=== PATIENT | female | born 1935 | race Caucasian/White ===

== ENCOUNTER 2016-12-14 16:50 | Inpatient (IN) | payer OTHER ==
[~2016-12-14] VITALS: Ht 162.6 cm; Wt 74.0 kg
--- NOTE | 2016-12-14 17:01 | NUR ---
DR NGUYEN AT BEDSIDE FOR MSE
--- NOTE | 2016-12-14 17:01 | NUR ---
EMT AT BEDSIDE FOR EKG
[2016-12-14] MEDS ORDERED: LOVASTATIN40 MG PO (17:11)
[2016-12-14] MEDS ORDERED: AMARYL4 MG PO (17:11)
[2016-12-14] MEDS ORDERED: ATENOLOL25 MG PO (17:12)
[2016-12-14] MEDS ORDERED: COUMADIN4 MG PO (17:12)
[2016-12-14] MEDS ORDERED: METFORMIN HCL1000 MG PO (17:12)
[2016-12-14] MEDS ORDERED: DILTIAZEM HCL120 M2 PO (17:12)
[2016-12-14] MEDS ORDERED: LOSARTAN POTASS50 M1 PO (17:13)
[2016-12-14] MEDS ORDERED: HYDROCHLOROTH12.5 M2 PO (17:13)
--- NOTE | 2016-12-14 17:13 | NUR ---
RADIOLOGY AT BEDSIDE FOR PCXR
--- NOTE | 2016-12-14 17:27 | NUR ---
MALT HOUSE LOADER AT BEDSIDE FOR BLOOD DRAW
--- NOTE | 2016-12-14 17:30 | NUR ---
PT DAUGHTER GIVEN VERBAL CONSENT FOR STRAIGHT CATH TO OBTAIN URINE SAMPLE
--- NOTE | 2016-12-14 17:48 | NUR ---
PT TAKEN FOR CT SCANS BY CORRY
[2016-12-14 18:01] LABS: CARBON DIOXIDE 27.6 mmol/L (21-32); CHLORIDE SERUM 105 mmol/L (98-107); GLUCOSE SERUM 136 mg/dL (74-106); POTASSIUM SERUM 3.4 mmol/L (3.5-5.1); SODIUM SERUM 142 mmol/L (136-145)
[2016-12-14 18:07] LABS: ALKALINE PHOSPHATASE 93 U/L (46-116); ALT/SGPT 126 U/L (14-59); AST/SGOT 114 U/L (15-37); BILIRUBIN TOTAL 1.22 mg/dL (0.20-1.00); HDL CHOLESTEROL 39 mg/dL (40-60); MAGNESIUM 1.5 mg/dL (1.8-2.4); PHOSPHOROUS 3.7 mg/dL (2.5-4.9); TOTAL PROTEIN, SERUM 7.2 g/dL (6.4-8.2)
[2016-12-14 18:08] LABS: ALBUMIN 2.9 g/dL (3.4-5.0)
[2016-12-14 18:09] LABS: CHOLESTEROL 101 mg/dL (<200)
--- NOTE | 2016-12-14 18:30 | NUR ---
PT TOLERATED STRAIGHT CATH TO OBTAIN URINE SAMPLE
--- NOTE | 2016-12-14 19:03 | NUR ---
PT REPORT RECEIVED FROM SOURAV MURPHY. QUESTIONS AND CONCERNS ADDRESSED BEDSIDE.
[2016-12-14 19:04] LABS: UA SPECIFIC GRAVITY 1.025 (1.005-1.035)
[2016-12-14 19:11] LABS: microscopic required? YES; urine erythrocyte 2+ (NEGATIVE)
[2016-12-14 19:31] LABS: BASOPHIL % 0.1 % (0-2); PLATELET COUNT 168 x10^3mcL (130-400); RED CELL DISTRIBUTION WIDTH 13.4 % (11.5-14.5)
--- NOTE | 2016-12-14 20:23 | NUR ---
AIRLINE STEWARDESS AT [facility] FOR BLOOD DRAW.
--- NOTE | 2016-12-14 20:38 | NUR ---
PURPLE SEPSIS CHECKLIST INITIATED. URINE CULTURE ADDED TO EXISTING ORDERS PER SEPSIS PROTOCOL W/ OK OF DR. NGUYEN. PT BEING ADMITTED FOR SEPSIS/UTI. PT DOES NOT YET MEET SECTION 1: 2 OR MORE SIGNS, ONLY MEETING 1 SIGN NOW.
--- NOTE | 2016-12-14 20:48 | NUR ---
PT REPORT GIVEN TO SOURAV HOLT. QUESTIONS AND CONCERNS ADDRESSED.
[2016-12-14 21:01] LABS: AMYLASE 174 U/L (25-115); LIPASE 899 IU/L (73-393)
[2016-12-14 21:11] LABS: T3 TOTAL 1.09 ng/mL
[2016-12-14 21:15] LABS: FREE T4 1.38 ng/dL (0.76-1.46); FREE THYROXINE INDEX 3.9 ug/dL (1.4-4.5)
[2016-12-14 21:16] VITALS: BP 158/105
--- NOTE | 2016-12-14 21:29 | NUR ---
RECEIVED LAVELLT FROM ED VIA GOLDY, PATIENT A/O X 1 CONFUSED AT TIMES, DAUGHTER AT BEDSIDE, NO C/O PAIN AT THIS TIME, TELE # 9 SR, IV ACCESS TO LEFT WRIST WNL, ORIENTED PATIENT TO ROOM AND SURROUNDINGS, BED IN LOW POSITION, BED RAILS UP X 2, CALL LIGHT WITHIN REACH, WILL ENDORSE CARE TO PRIMARY NURSE JONATHON BENJAMIN
--- NOTE | 2016-12-14 21:54 | NUR ---
PATIENT IVF NS AT 100 CC/ HOUR,MAG RIDER INFUSING,PO KCL FOR LOW LEVEL GIVEN.WILL INITIATE PLAN OF CARE.CALL LITE IN REACH,BED ALARM ON.PATIENT HAS DEMENTIA.
--- NOTE | 2016-12-14 22:48 | NUR ---
PATIENT TELE READING IS AFIB.PHYSICIAN AWARE.
--- NOTE | 2016-12-15 00:29 | NUR ---
PATIENT KEEP NPO US OF ABD IN AM.
--- NOTE | 2016-12-15 03:13 | NUR ---
PATIENT REPOSITIONED,RESISTING CARE.HAVE TO TALKED TO HER AND EXPLAINED RATIONALE.PATIENT INCONTINENT OF URINE.CHECKED AT INTERVALS,BED ALARM ON FOR SAFETY.
[2016-12-15 06:00] VITALS: BP 155/85
--- NOTE | 2016-12-15 06:16 | NUR ---
NPO FOR ABD US THIS AM,[facility].WILL ENDORSE TO NEXT SHIFT.
[2016-12-15 06:18] LABS: BASOPHIL % 0.4 % (0-2); PLATELET COUNT 144 x10^3mcL (130-400); RED CELL DISTRIBUTION WIDTH 13.3 % (11.5-14.5)
[2016-12-15 07:04] LABS: CALCIUM 8.3 mg/dL (8.5-10.1); CARBON DIOXIDE 30.4 mmol/L (21-32); CHLORIDE SERUM 109 mmol/L (98-107); CREATININE SERUM 0.9 mg/dL (0.6-1.0); GLUCOSE SERUM 95 mg/dL (74-106); MAGNESIUM 2.2 mg/dL (1.8-2.4); POTASSIUM SERUM 3.6 mmol/L (3.5-5.1); SODIUM SERUM 144 mmol/L (136-145)
--- NOTE | 2016-12-15 07:17 | NUR ---
PT RECEIVED AND SEEN. AT THIS TIME THE PATIENT IS RESTING IN BED. SHE IS AAOX2, WITH HISTORY OF DEMENTIA. APPEARS CALM. TELE MONITOR [address] RESPIRATIONS ARE EVEN AND UNLABORED ON ROOM AIR. NO SIGNS OF RESPIRATORY DISTRESS. PATIENT IS CURRENTLY NPO DUE TO MORNING SCHEDULED ULTRASOUND. DENIES PAIN. NS INFUSING IN LFA PER ORDER. ALL SAFETY MEASURES IN PLACE. WILL CONTINUE TO MONITOR.
[2016-12-15 09:10] VITALS: BP 167/86
--- NOTE | 2016-12-15 12:10 | NUR ---
PATIENT IS RESTING IN BED WITH FAMILY AT BEDSIDE. AT THIS TIME THE PATIENT HAS NO COMPLAINTS OF PAIN. NO ACUTE CHANGES TO PATIENT CONDITION. NO SOB. NO CHEST PAIN. WILL CONTINUE TO MONITOR. CALL LIGHT WITHIN REACH.
--- NOTE | 2016-12-15 12:30 | NUR ---
PT HAS BEEN COMPLAINING OF DIARRHEA. PHYSICIAN NOTIFIED, STATED THAT PT IS ALREADY BEING TREATED WITH FLAGYL FOR CDIFF. WILL MONITOR FOR NEW ORDERS.
[2016-12-15 14:08] VITALS: BP 157/85
--- NOTE | 2016-12-15 17:05 | NUR ---
REPORT GIVEN TO NIGHT NURSE. AT THIS TIME THE PATIENT IS RESTING IN BED WITH FAMILY AT BEDSIDE. IV INFUSING PER ORDER, WNL. PATIENT RESPIRATIONS ARE EVEN AND UNLABORED ON ROOM AIR. ALL SAFETY MEASURES IN PLACE. CALL LIGHT WITHIN REACH.
--- NOTE | 2016-12-15 17:10 | NUR ---
PHYSICIAN IN ROOM SPEAKING TO PATIENT AND FAMILY ABOUT THE PLAN OF CARE. ALL QUESTIONS ARE ANSWERED AT THIS TIME.
[2016-12-15 18:15] VITALS: BP 108/63
--- NOTE | 2016-12-15 19:10 | NUR ---
REC'D PT FROM DAY NURSE. DAUGHTER AT BEDSIDE. PT AAOX2, NAURUAN SPEAKING, SPEECH CLEAR, SLOW TO RESPOND, FORGETFUL. REORIENTED TO AGE AND . DROOPY R EYELID. R EYE DILATED. NO SIGNS OF DISTRESS NOTED. BREATHING EVEN/UNLABORED ON RA. ON TELE 9 READING AFIB. ON COUMADIN. DENIES CP, DIZZINESS, OR PALPITATIONS. NO EDEMA NOTED. DENIES ABD PAIN BUT REPORTS TENDERNESS TO LLQ WITH PALPATION. BOWEL SOUNDS ACTIVE. DENIES N/V. NPO MN FOR POSS PROCEDURE. VOIDING FREELY WITH SOME INCONTINENCE. GEN WEAKNESS. USES WALKER/CANE AT HOME. SKIN INTACT. C/O PAIN TO LLE 10. WILL GIVE TYLENOL PER REQUEST. CALL LIGHT WITHIN REACH, BED AT LOWEST POSITION. WILL CONTINUE TO MONITOR.
--- NOTE | 2016-12-15 22:37 | NUR ---
PT VOIDED. LINENS AND GOWN CHANGED. PT REPORTS PAIN TO NECK WITH MOVEMENT. RASH TO L LOWER ABD FOLD/GROIN. PICTURES TAKEN. DR. SANDHU AWARE. STATED HE WOULD ORDER NYSTATIN. WILL CONTINUE TO MONITOR.
[2016-12-15 22:57] VITALS: BP 163/73
--- NOTE | 2016-12-16 01:42 | NUR ---
PT RESTING IN BED WITH EYES CLOSED. NO SIGNS OF DISTRESS NOTED. BREATHING EVEN/UNLABORED ON RA. CALL LIGHT WITHIN REACH, BED AT LOWEST POSITION, BED ALARM ON. WILL CONTINUE TO MONITOR.
--- NOTE | 2016-12-16 05:54 | NUR ---
PT AWAKE, RESTING IN BED. AAOX2, REORIENTED TO AGE AND TIME. NO SIGNS OF DISTRESS NOTED. BREATHING EVEN/UNLABORED ON RA. BS 132. PT NPO FOR POSS PROCEDURE. AMARYL HELD D/T NPO STATUS. DENIES PAIN AT THIS TIME. PT RESTED AT NIGHT BUT BECAME CONFUSED AT TIMES- WAS TRYING TO GET OUT OF BED. CALL LIGHT WITHIN REACH, BED AT LOWEST POSITION, BED ALARM ON. WILL ENDORSE TO DAY NURSE.
[2016-12-16 06:35] LABS: BASOPHIL % 0.2 % (0-2); PLATELET COUNT 147 x10^3mcL (130-400); RED CELL DISTRIBUTION WIDTH 13.4 % (11.5-14.5)
[2016-12-16 06:44] LABS: CALCIUM 8.4 mg/dL (8.5-10.1); CARBON DIOXIDE 26.8 mmol/L (21-32); CHLORIDE SERUM 106 mmol/L (98-107); CREATININE SERUM 0.9 mg/dL (0.6-1.0); GLUCOSE SERUM 135 mg/dL (74-106); MAGNESIUM 1.7 mg/dL (1.8-2.4); POTASSIUM SERUM 3.5 mmol/L (3.5-5.1); SODIUM SERUM 142 mmol/L (136-145)
[2016-12-16 06:47] VITALS: BP 182/86
--- NOTE | 2016-12-16 06:51 | NUR ---
PT TRYING TO GET OUT OF BED. CONFUSED. REORIENTED TO PLACE AND TIME. PT THOUGHT SHE WAS AT HOME. MADE COMFORTABLE IN BED. BED ALARM ON, SIDE RAILS UP X3. WILL ENDORSE TO DAY NURSE.
--- NOTE | 2016-12-16 07:00 | NUR ---
BP 182/86, MAP 117, HR 104. NO ANTIHYPERTENSIVE PRN MEDS. ATANOLOL AND COZAAR GIVEN EARLY. DR. SANDHU MADE AWARE VIA [place].
--- NOTE | 2016-12-16 07:46 | NUR ---
A+OX1, DROOPY R EYE, DEMENTIA, TELE 9, CONFUSED, PULSES MODERATE AND EQUAL ALCIDES, NO EDEMA PRESENT, RECEIVING COUMADIN, LUNG SOUNDS: DIM BASES, TOLERATING ROOM AIR, NO N/V, BOWEL SOUNDS PRESENT, VOIDING, INCONTINENT, GENERALIZED WEAKNESS, SITTER AT BEDSIDE, RASH L ABD FOLD/GROIN, IV IN RFA WITH NS @ 100 ML/HR, SITE WNL, CA 8.4, MG 1.7.
--- NOTE | 2016-12-16 08:48 | NUR ---
PT RESTING IN BED, SITTER AT BEDSIDE, IN NO APPARANT PAIN, NO RESPIRATORY DISTRESS NOTED.
[2016-12-16 09:10] VITALS: BP 177/98
--- NOTE | 2016-12-16 09:29 | NUR ---
PT RESTING IN BED, NO RESPIRATORY DISTRESS NOTED, IN NO APPARANMT PAIN, SITTER AT BEDSIDE, DAUGHTER AT BEDSIDE.
--- NOTE | 2016-12-16 10:10 | NUR ---
DR HUMMEL NOTIFIED OF PT BP 177/98 AFTER ALL BP MEDS GIVEN.
--- NOTE | 2016-12-16 10:48 | NUR ---
PT RESTING IN BED, NO RESPIRATORY DISTRESS NOTED, IN NO APPARANT PAIN, DAUGHTERS AT BEDSIDE AND INQUIRING ABOUT POSSIBLE SURGERY.
--- NOTE | 2016-12-16 11:53 | NUR ---
PT RESTING IN BED, NO RESPIRATORY DISTRESS NOTED, CONFUSED, IN NO APPARANT PAIN.
--- NOTE | 2016-12-16 13:47 | NUR ---
PT RESTING IN BED, VOIDED, BED LINENS CHANGED, NO RESPIRATORY DISTRESS NOTED, COMPLAINING OF NECK PAIN FROM ARTHRITIS, TYLENOL GIVEN, FAMILY AT BEDSIDE.
[2016-12-16 14:00] VITALS: BP 163/64
--- NOTE | 2016-12-16 14:50 | NUR ---
PT RESTING IN BED, NO RESPIRATORY DISTRESS NOTED, PT FAMILY THREATENING TO BRING PT OUTSIDE FOOD IF WE DO NOT FEED HER, DR HUMMEL IN THE ROOM TO SPEAK TO FAMILY.
--- NOTE | 2016-12-16 15:39 | NUR ---
PT RESTING IN BED, NO RESPIRATORY DISTRESS NOTED, IN NO APPARANT PAIN, FAMILY AT BEDSIDE.
[2016-12-16 16:45] VITALS: BP 183/91
--- NOTE | 2016-12-16 16:55 | NUR ---
PT RESTING IN BED, VOIDED, BED LINENS CHANGED, NO RESPIRATORY DISTRESS NOTED, IN NO APPARANT PAIN, FAMILY AT BEDSIDE.
--- NOTE | 2016-12-16 17:10 | NUR ---
PT RESTING IN BED, NO RESPIRATORY DISTRESS NOTED, SLEEPING, IN NO APPARANT PAIN, FAMILY AT BEDSIDE.
--- NOTE | 2016-12-16 18:01 | NUR ---
PT RESTING IN BED, NO RESPIRATORY DISTRESS NOTED, DENIES PAIN, SOB, NAUSEA, AND HEADACHE.
--- NOTE | 2016-12-16 18:36 | NUR ---
PT RESTING IN BED, NO RESPIRATORY DISTRESS NOTED, IN NO APPARANT PAIN, FAMILY AT BEDSIDE.
--- NOTE | 2016-12-16 19:41 | NUR ---
REC'D PT FROM DAY NURSE. AAOX1. CONFUSED AT TIMES. R EYE DROOP. DAUGHTERS AT BEDSIDE. DENIES PAIN AT THIS TIME. TELE # 9. PULSES ARE PRESENT. LUNG SOUNDS ARE DIMINISHED BUT CTA. BREATHING EVEN AND UNLABORED. ABD IS SOFT AND ROUND. NO EDEMA NOTED. BOWEL AND BLADDER INCONTINENCE. PT USES CANE/WALKER AT HOME. BED ALARM ON. BED IN LOWEST POSITION. CALL LIGHT WITHIN REACH. WILL PROCEED TO THE PLAN OF CARE.
[2016-12-16 20:44] VITALS: BP 166/84
--- NOTE | 2016-12-17 01:03 | NUR ---
PT IS CURRENTLY ASLEEP AND RESTING WELL. NO ACUTE DISTRESS NOTED. BREATHING EVEN AND UNLABORED. IV INTACT AND PATENT INFUSING WELL. WILL CONT TO MONITOR.
--- NOTE | 2016-12-17 04:01 | NUR ---
PT RESTING WITH EYES CLOSED. NO SOB. NO ACUTE DISTRESS NOTED. BREATHING EVEN AND UNLABORED. IV INTACT AND PATENT. SITTER AT BEDSIDE. WILL CONT TO MONITOR.
[2016-12-17 05:16] VITALS: BP 147/90
--- NOTE | 2016-12-17 05:52 | NUR ---
PT PERIODICALLY SLEPT THROUGHOUT THE SHIFT. NO ACUTE DISTRESS OR SIGNIFICANT CHANGES NOTED. BREATHING EVEN AND UNLABORED. ALL NEEDS MET AND ATTENDED TO. IV INTACT AND PATENT INFUSING WELL. WILL ENDORSE ALL CONTINUITY CARE TO ONCOMING NURSE.
[2016-12-17 06:43] LABS: BASOPHIL % 1.7 % (0-2); PLATELET COUNT 163 x10^3mcL (130-400); RED CELL DISTRIBUTION WIDTH 12.6 % (11.5-14.5)
[2016-12-17 06:45] LABS: CALCIUM 8.5 mg/dL (8.5-10.1); CARBON DIOXIDE 26.3 mmol/L (21-32); CHLORIDE SERUM 106 mmol/L (98-107); CREATININE SERUM 0.8 mg/dL (0.6-1.0); GLUCOSE SERUM 189 mg/dL (74-106); POTASSIUM SERUM 3.6 mmol/L (3.5-5.1); SODIUM SERUM 140 mmol/L (136-145)
[2016-12-17 07:07] LABS: BILIRUBIN DIRECT 0.19 mg/dL (0.0-0.2); BILIRUBIN TOTAL 0.57 mg/dL (0.20-1.00); TOTAL PROTEIN, SERUM 6.6 g/dL (6.4-8.2)
[2016-12-17 07:09] LABS: ALBUMIN 2.5 g/dL (3.4-5.0)
--- NOTE | 2016-12-17 07:15 | NUR ---
PT A+OX1, NO RESPIRATORY DISTRESS NOTED, IN NO APPARANT PAIN, SITTER AT BEDSIDE, R EYE DROOP, TELE 9, A FIB, PULSES MODERATE AND EQUAL ALCIDES, NO EDEMA PRESENT, LUNG SOUNDS CLEAR, TOLERATING ROOM AIR, BOWEL SOUNDS ACTIVE, VOIDING, INCONTINENT, GENERALIZED WEAKNESS, RASH L ABD FOLD/GROIN, IV TO RFA WITH NS @ 70 ML/HR, SITE WNL, MG 1.7, ALT 82, ALBUMIN 2.5, PT 27.1.
--- NOTE | 2016-12-17 08:16 | NUR ---
PT RESTING IN BED, NO RESPIRATORY DISTRESS NOTED, IN NO APPARANT PAIN, FAMILY AT BEDSIDE.
--- NOTE | 2016-12-17 09:38 | NUR ---
PT RESTING IN BED, SLEEPING, NO RESPIRATORY DISTRES NOTED, IN NO APPARANT PAIN, FAMILY AT BEDSIDE.
--- NOTE | 2016-12-17 09:50 | NUR ---
PT SLEEPING AND FAMILY REQUESTED NURSE NOT TO WAKE PT UP AND RETURN TO GIVE MORNING MEDICATIONS LATER.
[2016-12-17 10:16] VITALS: BP 181/110
--- NOTE | 2016-12-17 10:36 | NUR ---
PT RESTING IN BED, NO RESPIRATORY DISTRESS NOTED, TOLERATED PO MORNING MEDS WELL, NO SWALLOWING DIFFICULTIES, FAMILY AT BEDSIDE, DR GARCIA IN ROOM REQUESTING PHYSICAL THERAPY FOR PT.
--- NOTE | 2016-12-17 11:04 | NUR ---
PT OFF UNIT FOR CT SCAN.
--- NOTE | 2016-12-17 11:37 | NUR ---
PT STILL OFF UNIT FOR CT SCAN.
--- NOTE | 2016-12-17 12:32 | NUR ---
PT STILL OFF UNIT FOR CT SCAN.
--- NOTE | 2016-12-17 12:44 | NUR ---
PT BACK ON UNIT FROM CT SCAN, NO RESPIRATORY DISTRESS NOTED, CONFUSED, DENIES PAIN.
--- NOTE | 2016-12-17 13:23 | NUR ---
PT RESTING IN BED, NO RESPIRATORY DISTRESS NOTED, IN NO APPARANT PAIN, FAMILY AT BEDSIDE.
--- NOTE | 2016-12-17 13:35 | NUR ---
PT HAD ONE SMALL, SOFT BM, VOIDED, BED LINENS CHANGED, PT REPOSITIONED AND PULLED UP.
[2016-12-17 14:20] VITALS: BP 180/76
--- NOTE | 2016-12-17 14:48 | NUR ---
P.T. NOTES CHART REVIEWED RECEIVED CLEARANCE FROM NRSG FOR P.T. JEREMY, DAUGHTER IRMA AT BEDSIDE, PT SOUND ASLEEP, ATTEMPTED TO WAKE UP SEVERAL TIMES BUT PT WOULD GROAN AND KEEP EYES CLOSED. PER DAUGHTER "SHE IS REALLY TIRED, SHE HASN'T HAD SLEEP IN 2 DAYS AND SHE HAD A BUSY MORNING." REQUESTED FOR PT TO BE SEEN TOMORROW INSTEAD, NRSG MADE AWARE. KRISHNAE
--- NOTE | 2016-12-17 14:52 | NUR ---
PHYSICAL THERAPY IN TO SEE PT, DAUGHTER ASKED PHYSCICAL THERAPY TO COME BACK TOMORROW BECAUSE PT IS TOO SLEEPY.
[2016-12-17] MEDS ORDERED: BAC PO (16:07)
--- NOTE | 2016-12-17 16:12 | NUR ---
PT RESTING IN BED, NO RESPIRATORY DISTRESS NOTED, IN NO APPARANT PAIN, FAMILY AT BEDSIDE. PER DR HUMMEL, PT WILL BE DISCHARGED TONIGHT. DR HUMMEL NOTIFIED ABOUT PT'S HIGH BLOOD PRESSURE IN 180'S AND STATED IT IS OK FOR PT TO GO HOME.
--- NOTE | 2016-12-17 16:54 | NUR ---
PT BP 181/80, DR TIWARI INFORMED. FAMILY STATED THEY WILL NOT TAKE PT HOME WHEN BP IS THIS HIGH.
[2016-12-17] MEDS ORDERED: HYDROCHLOROTH12.5 M3 PO (17:06)
--- NOTE | 2016-12-17 18:02 | NUR ---
PT RESTING IN BED, VERY GROGGY, GIVEN HYDRALAZINE FOR HTN, WILL CONT TO MONITOR BP.
[2016-12-17 18:49] VITALS: BP 139/42
--- NOTE | 2016-12-17 18:50 | NUR ---
PT TEMP 100.2, TYLENOL GIVEN, PT WILL NOT BE DISCHARGED.
--- NOTE | 2016-12-17 19:25 | NUR ---
SEEN ASLEEP, AROUSABLE AND WENT BACK TO SLEEP. FAMILY AT BEDSIDE. BREATHING EASY ON ROOM AIR. LUNG SOUND CTA. AFIB ON TELE MONITOR. HOB ELEVATED AT 30DEG. GEN BODY WEAKNESS. INCONTINENCE URINE. IVF NS AT 40ML/HR INFUSING WELL. FALL PRECAUTION MAINTAINED. WILL CONTINUE TO MONITOR.
[2016-12-17 21:00] VITALS: BP 157/69
--- NOTE | 2016-12-17 21:00 | NUR ---
AFEBRILE 98.3 AT THIS TIME. ASLEEP, EASILY TO AROUSE. BEDTIME MEDS CRUSHED AND MIXED WITH APPLE SAUCE, TOLERATED WELL.
[2016-12-18 05:09] VITALS: BP 155/85
[2016-12-18 06:54] LABS: BASOPHIL % 0.2 % (0-2); PLATELET COUNT 177 x10^3mcL (130-400); RED CELL DISTRIBUTION WIDTH 13.7 % (11.5-14.5)
[2016-12-18 07:12] LABS: CALCIUM 8.6 mg/dL (8.5-10.1); CARBON DIOXIDE 28.1 mmol/L (21-32); CHLORIDE SERUM 105 mmol/L (98-107); CREATININE SERUM 0.8 mg/dL (0.6-1.0); GLUCOSE SERUM 210 mg/dL (74-106); MAGNESIUM 1.9 mg/dL (1.8-2.4); POTASSIUM SERUM 3.2 mmol/L (3.5-5.1); SODIUM SERUM 140 mmol/L (136-145)
--- NOTE | 2016-12-18 07:16 | NUR ---
AFEBRILE THROUGHOUT SHIFT. NO ANY DISTRESS NOTED. SLEPT MOST OF THE TIME. INCONTINENCE URINE, PARTIAL BEDBATH DONE THIS AM. IVF NS INFUSING WELL.
--- NOTE | 2016-12-18 08:00 | NUR ---
RECEIVED PATIENT DROWSY, BUT AROUSABLE. DEMENTIA. TELE#10 = A FIB; HR =100 +/-. NO S/S OF CHEST PAIN. NO RESP DISTRESS ON RA. PATIENT ABLE TO HAVE BREAKFAST BY FEEDING. IVF OF NS 40CC/HR INFUSING WELL TO RFA. URINE INCONT. NO S/S OF PAIN. SAFETY PRECAUTION IN CLACE.
--- NOTE | 2016-12-18 09:10 | NUR ---
DR. VASQUEZ AND MEDICAL TEAM MADE IWLLY ROUND. PLAN OF CARE DISCUSSED WITH PATEINT, INCLUDED WITH DISCHARGE PLAN. PATIENT'S DAUGHTER AGREED WITH PLAN OF CARE.
[2016-12-18 09:14] VITALS: BP 138/71
[2016-12-18] MEDS ORDERED: KLOR-CON M1010 MEQ PO (10:37)
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
--- NOTE | 2016-12-18 11:40 | NUR ---
NOTIFIED DR. HUMMEL WITH PATIENT'S POTASSIUM LEVEL = 3.2; NEW ORDER OF K-RIDER CARRIED OUT.
[2016-12-18 15:13] VITALS: BP 138/71
--- NOTE | 2016-12-18 16:30 | NUR ---
K- RIDE GIVEN. PATEINT AWAKE. V/S WNL. AFEBRILE. D/C TO HOME PER ORDER. INSTRUCTION GIVEN TO PATIENT'S DAUGHTER. PAPER SIGNED BY PATIENT'S DAUGHTER. IV D/C'D. CONDITION STABLE.
== END 2016-12-18 16:45 | disposition home or self-care (01) | DRG 689 ==
LOC: ED 16:50 → EDBD 16:50 → DU 20:16
PROVIDERS: Emergency Medicine; Internal Medicine Gastroenterology; ADMIT Family Medicine
DX: N39.0 Urinary tract infection, site not specified (principal); N17.0 Acute kidney failure with tubular necrosis; E43 Unspecified severe protein-calorie malnutrition; K80.00 Calculus of gallbladder with acute cholecystitis without obstruction; J98.11 Atelectasis; B96.20 Unspecified Escherichia coli [E. coli] as the cause of diseases classified elsewhere; E11.65 Type 2 diabetes mellitus with hyperglycemia; E11.51 Type 2 diabetes mellitus with diabetic peripheral angiopathy without gangrene; M47.892 Other spondylosis, cervical region; M62.838 Other muscle spasm; I48.2 Chronic atrial fibrillation; I10 Essential (primary) hypertension; E87.6 Hypokalemia; E83.42 Hypomagnesemia; E03.9 Hypothyroidism, unspecified; Z68.28 Body mass index [BMI] 28.0-28.9, adult; Z79.01 Long term (current) use of anticoagulants; Z79.84 Long term (current) use of oral hypoglycemic drugs
CPT/HCPCS: 78226; 82962; 83880; 84439; 94150; 97110-GP; A9537; J0360; J0696; J1956; J2405; J3010; J3430; J3475; J3480; J7030; Q0092

== ENCOUNTER 2018-10-25 20:41 | Observation (INO) | payer OTHER ==
[~2018-10-25] VITALS: Ht 175.3 cm; Wt 74.8 kg
[~2018-10-25 20:41] MED LIST: AMARYL4 MG PO; BAC PO; COUMADIN4 MG PO; DILTIAZEM HCL120 M2 PO; HYDROCHLOROTH12.5 M2 PO; HYDROCHLOROTH12.5 M3 PO; KLOR-CON M1010 MEQ PO; LOVASTATIN40 MG PO; METFORMIN HCL1000 MG PO
[2018-10-25 20:47] VITALS: Ht 175.3 cm; Wt 74.8 kg
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
--- NOTE | 2018-10-25 21:14 | NUR ---
LAB AT BEDSIDE
--- NOTE | 2018-10-25 21:14 | NUR ---
DAUGHTER AT BEDSIDE
--- NOTE | 2018-10-25 21:15 | NUR ---
PER DAUGHTER PT USES CANE AT HOME TO WALK WITH THEIR ASSISTANCE
[2018-10-25 21:25] LABS: BASOPHIL % 0.4 % (0-2); PLATELET COUNT 157 x10^3mcL (130-400); RED CELL DISTRIBUTION WIDTH 13.9 % (11.5-14.5)
[2018-10-25 21:36] LABS: CALCIUM 9.1 mg/dL (8.5-10.1); CARBON DIOXIDE 22.8 mmol/L (21-32); CHLORIDE SERUM 102 mmol/L (98-107); CREATININE SERUM 1.3 mg/dL (0.6-1.0); GLUCOSE SERUM 219 mg/dL (74-106); POTASSIUM SERUM 3.1 mmol/L (3.5-5.1); SODIUM SERUM 139 mmol/L (136-145)
[2018-10-25 21:52] LABS: ALKALINE PHOSPHATASE 59 U/L (46-116); ALT/SGPT 16 U/L (14-59); AST/SGOT 7 U/L (15-37); BILIRUBIN TOTAL 0.55 mg/dL (0.20-1.00); MAGNESIUM 1.3 mg/dL (1.8-2.4); TOTAL PROTEIN, SERUM 7.1 g/dL (6.4-8.2)
[2018-10-25 21:53] LABS: ALBUMIN 3.1 g/dL (3.4-5.0)
--- NOTE | 2018-10-25 21:54 | NUR ---
PT TAKEN TO CT VIA CORRY
--- NOTE | 2018-10-25 21:55 | NUR ---
PT TAKEN TO CT VIA CORRY
--- NOTE | 2018-10-25 22:10 | NUR ---
PT BACK FROM CT IN STABLE CONDITION, PORTABLE CXR AT BEDSIDE
[2018-10-25 22:35] LABS: microscopic required? YES; urine erythrocyte 2+ (NEGATIVE)
--- NOTE | 2018-10-25 22:40 | NUR ---
PT IN POSITION OF COMFORT, RESPS E/U, AX AND NS BOLUS INFUSING PER EMAR DAUGHTERS AT BEDSIDE, CALL LIGHT WITHIN REACH
[2018-10-25] MEDS ORDERED: PRAVACHOL20 MG PO (22:43)
[2018-10-25] MEDS ORDERED: GOOD SENSE ASPI81 M3 PO (22:44)
[2018-10-25] MEDS ORDERED: HUMALOG100 UNIT/1 SQ (22:45)
[2018-10-25] MEDS ORDERED: MASON NATURAL1000 IU PO (22:58)
--- NOTE | 2018-10-25 23:35 | NUR ---
PT ASLEEP BUT AROUSABLE, RESPS E/U, VSS
--- NOTE | 2018-10-26 00:05 | NUR ---
PERICARE PROVIDED, RESPS E/U, VSS, PT IN NAD, DAUGHTERS AT BEDSIDE
--- NOTE | 2018-10-26 00:50 | NUR ---
PERICARE PROVIDED, RESPS E/U, VSS, PT IN NAD, DAUGHTERS AT BEDSIDE
--- NOTE | 2018-10-26 02:27 | NUR ---
RECEIVED PT FROM ED ON GOLDY ACCOMPANIED BY NURSE. DAUGHTERS AT BEDSIDE. AAO X2. NEPALESE SPEAKING. MED/SURG. DENIES PAIN. BREATHING E/U ON RA. NO S/S ACUTE DISTRESS. 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 PT ALSO SHOUTING AT STAFF. FOUL ODOR NOTED IN URINE. SEE SKIN ASSESSMENT. PT ONLY CALMS DOWN FOR SHORT PERIOD OF TIME WITH DAUGHTER REORIENTATION. IV TO R HAND CDI, NO ERYTHEMA OR EDEMA; SALINE-LOCKED AT THIS TIME. CALL LIGHT WITHIN REACH. SAFETY MEASURES IN PLACE. BED ALARM ON. WILL CONTINUE TO MONITOR.
[2018-10-26 02:39] VITALS: BP 149/117
--- NOTE | 2018-10-26 03:17 | NUR ---
SPOKE TO DR. JEFFERY ON PHONE, ORDERS RECEIVED, WILL INPUT AND CARRY OUT.
[2018-10-26 04:28] VITALS: BP 137/107
--- NOTE | 2018-10-26 04:39 | NUR ---
PT TOLERATED MEDICATION ADMINISTRATION WELL WITH ASSISTANCE FROM SOURAV HERNANDEZ. PT MORE COOPERATIVE WITH CARE AT THIS TIME.
--- NOTE | 2018-10-26 06:25 | NUR ---
PT RESTING IN BED WITH EYES CLOSED. NO S/S ACUTE DISTRESS. NO CHANGES OVERNIGHT. ALL NEEDS MET AND ATTENDED TO. IV SITE WRAPPED, IVF INFUSING WELL. NO C/O PAIN. CALL LIGHT WITHIN REACH. SAFETY MEASURES IN PLACE. WILL ENDORSE CARE TO ONCOMING SHIFT.
--- NOTE | 2018-10-26 07:15 | NUR ---
PATIENT IN BED SLEEPING BUT ARROUSABLE, A/OX2. NO SIGN OF ACUTE DISTRESS ON RA. WILL CONT TO ASSESS/MONITOR. CALL LIGHT WITHIN REACH.
--- NOTE | 2018-10-26 07:18 | NUR ---
BEDSIDE REPORT GIVEN TO SOURAV CORREIA. ALL QUESTIONS AND CONCERNS ADDRESSED.
[2018-10-26 07:47] LABS: BASOPHIL % 0.3 % (0-2); PLATELET COUNT 129 x10^3mcL (130-400); RED CELL DISTRIBUTION WIDTH 13.8 % (11.5-14.5)
--- NOTE | 2018-10-26 08:20 | NUR ---
INCONTINENCE NOTED. DAUGHTER AT BEDSIDE. PATIENT CLEANSED AND MADE REPOSITIONED. DAUGHTER NOW ASSISTING WITH FEEDING BREAKFAST MEAL, NO SIGN OF DIFFICULTY SWALLOWING AT THIS TIME. CHARGE NURSE MADE AWARE. WILL CONT TO MONITOR.
[2018-10-26 08:33] LABS: CALCIUM 8.6 mg/dL (8.5-10.1); CARBON DIOXIDE 20.6 mmol/L (21-32); CHLORIDE SERUM 105 mmol/L (98-107); CREATININE SERUM 0.9 mg/dL (0.6-1.0); GLUCOSE SERUM 110 mg/dL (74-106); POTASSIUM SERUM 3.3 mmol/L (3.5-5.1); SODIUM SERUM 142 mmol/L (136-145)
[2018-10-26 08:43] VITALS: BP 157/83
--- NOTE | 2018-10-26 12:25 | NUR ---
RECEIVED CALL BACK FROM DR ARREAGA, INFORMED OF PATIENTS ADMISSION LAST NIGHT AND TELEPHONE READBACK ORDER RECIEVED TO CONTINUE ALL HOME MEDICATIONS. MEDS CLARIFIED WITH PATIENT'S DAUGHTER AT BEDSIDE.
--- NOTE | 2018-10-26 13:02 | NUR ---
REPORT GIVEN TO MATT BENJAMIN, PATIENT AND DAUGHTER AT BEDSIDE MADE AWARE. PATIENT EATING LUNCH MEAL WITH DAUGHTER'S ASSISTANCE. NO SIGN OF ACUTE DISTRESS. ALL QUESTIONS/CONCERNS ADDRESSED.
--- NOTE | 2018-10-26 15:45 | NUR ---
DR ARREAGA AWARE THAT SHE GOT ROCEPHIN 1 GRAM IV LAST NIGHT WHICH IS THE SAME CLASS OF DRUGS ANCEF, AND SHE HAD NO ALLERGIC REACTION (ALLERGY TO PCN). SO HE WANTED ANCEF I GRAM IV TO BE GIVEN, PHARMACY WAS HOLDING THIS MEDICATION DUE TO HER PCN ALLERGY, PHARMACY WAS NOTIFIED, IT WILL BE GIVEN PER DR ARREAGA ORDER.
--- NOTE | 2018-10-26 17:55 | NUR ---
AAO TO SELF, CONFUSED. FAMILY PRESENT, WITH HER DTRS PRESENT SHE WILL TAKE MEDICATIONS AND COOPERATE WITH CARE. NO C/O PAIN. NO SOB. FEEDER, HER DAUGHTER IS FEEDING HER. MED SURG PATIENT.
[2018-10-26 18:12] VITALS: BP 148/80
--- NOTE | 2018-10-26 19:55 | NUR ---
PT. SLEEPING, EASY TO WAKE. SLOW TO RESPOND. ONLY FOLLOWING SOME COMMANDS AT TIMES. RT. EYE SLIGHTLY DROOPED. BREATH SOUNDS CLEAR THROUGHOUT LUNG LUNDBERG, RESP. EVEN, UNLABORED. PT. ON RA. NO SOB NOTED. ABD. SOFT AND ROUND, BOWEL SOUNDS ACTIVE. PEDAL PULSES MODERATE BLE. SCATTERED ABRASIONS TO BLE, JULIA, SCABBED. NO DRAINAGE NOTED. LUE W/ SOME SLIGHT EDEMA TO UPPER PORTION OF LUE. NO REDNESS NOTED. NO TENDERNESS AT THIS TIME. NO REDNESS NOTED. IVF INFUSING WELL TO RFA, 1/2 NS AT 70CC/HR, SITE INTACT. FAMILY AT [facility]. CALL LIGHT WITHIN REACH. BED LOW LAYING W/ ALARM ON.
[2018-10-26 21:19] VITALS: BP 143/76
--- NOTE | 2018-10-27 00:45 | NUR ---
PT. RESTING WELL. NO COMPLAINTS THUS FAR. IVF INFUSING WELL, SITE REMAINS INTACT. WILL CONTINUE TO MONITOR. BED LOW LAYING WITH ALARM ON.
[2018-10-27 04:59] VITALS: BP 129/85
[2018-10-27 06:27] LABS: BASOPHIL % 0.4 % (0-2); PLATELET COUNT 141 x10^3mcL (130-400); RED CELL DISTRIBUTION WIDTH 13.7 % (11.5-14.5)
[2018-10-27 06:36] LABS: CALCIUM 8.5 mg/dL (8.5-10.1); CARBON DIOXIDE 28.5 mmol/L (21-32); CHLORIDE SERUM 105 mmol/L (98-107); GLUCOSE SERUM 211 mg/dL (74-106); POTASSIUM SERUM 3.4 mmol/L (3.5-5.1); SODIUM SERUM 142 mmol/L (136-145)
--- NOTE | 2018-10-27 06:44 | NUR ---
PT. SLEEPING. HAD UNEVENTFUL NIGHT. IVF INFUSING WELL. CALL LIGHT WITHIN REACH. WILL ENDORSE PT. CARE TO INCOMING NURSE.
--- NOTE | 2018-10-27 08:16 | NUR ---
AAO TO PERSON AND SOMEWHAT TO PLACE. CONFUSED, HISTORY OF DEMENTIA. LEFT SIDED WEAKNESS, WITH RIGHT EYE DROOP. LUNGS CTA. NO SOB. O2 SAT ON RA 98%. BS'S ACTIVE TIMES 4. IV SITE RIGHT HAND CDI. FEEDER. INCONTNENT OF URINE. MED SURG PATIENT. FAMILY NOT PRESENT.
[2018-10-27 09:48] VITALS: BP 159/69
[2018-10-27 11:45] VITALS: BP 159/69
--- NOTE | 2018-10-27 13:57 | NUR ---
REMOVED SL ANGIO INTACT, SITE CDI. GAVE PT'S DTR DISCHARGE INSTRUCTIONS AND PRESCRIPTION. TOOK PHOTO OF LEFT ARM, THE SWELLING AND ERYTHEMA HAS DECREASED SINCE YESTERDAY, DR ARREAGA SAW HER ARM AND TALKED WITH THE DAUGHTER THIS AM. THE DAUGHTER VERBALIZED "I UNDERSTAND" TO ALL INSTRUCTIONS. SHE WAS SENT HOME WITH [employer] [facility], AFTER HER LAST DOSE OF ANCEF.
== END 2018-10-27 13:57 | disposition home health service (06) | DRG 602 ==
LOC: ED 20:41 → MU 10-26 00:35
PROVIDERS: Emergency Medicine; Specialist; ADMIT Internal Medicine Pulmonary Disease
DX: L03.114 Cellulitis of left upper limb (principal); G93.41 Metabolic encephalopathy; N39.0 Urinary tract infection, site not specified; N17.9 Acute kidney failure, unspecified; I69.354 Hemiplegia and hemiparesis following cerebral infarction affecting left non-dominant side; B96.20 Unspecified Escherichia coli [E. coli] as the cause of diseases classified elsewhere; E86.0 Dehydration; I10 Essential (primary) hypertension; E78.5 Hyperlipidemia, unspecified; F03.90 Unspecified dementia, unspecified severity, without behavioral disturbance, psychotic disturbance, mood disturbance, and anxiety; E11.9 Type 2 diabetes mellitus without complications
CPT/HCPCS: 82962; G0378; J0690; J0696; J1817; J3475; Q0092

== ENCOUNTER 2018-10-30 14:29 | Inpatient (IN) | payer OTHER ==
[~2018-10-30] VITALS: Ht 160 cm; Wt 53.0 kg
[~2018-10-30 14:29] MED LIST changes: +GOOD SENSE ASPI81 M3 PO; +HUMALOG100 UNIT/1 SQ; +MASON NATURAL1000 IU PO; +PRAVACHOL20 MG PO
[2018-10-30 14:50] VITALS: Ht 160 cm; Wt 53.0 kg
--- NOTE | 2018-10-30 15:03 | NUR ---
BROUGHT IN BY AMBULANCE AWAKE ALERT, H/O DEMENTIA,ANSWERS QUESTIONS PROPERLY, PER PARAMEDICS PER JAGDEEP FEELING GENERALIZED WEAKNESS WITH ALOC,, BP WAS LOWE IN 70S PSYCHOLOGISTS,HR 60 AF, WAS GIVEN 400 CC NSS BP UP TO 110 SYSTOLIC. VA=375. CARDIAC MONUITOR IN CONTROLLED A FIB WITH VENTRICULAR RESPONSE IN 50S
[2018-10-30 15:23] LABS: BASOPHIL % 0.3 % (0-2); PLATELET COUNT 219 x10^3mcL (130-400); RED CELL DISTRIBUTION WIDTH 13.6 % (11.5-14.5)
[2018-10-30 15:40] LABS: CARBON DIOXIDE 22.2 mmol/L (21-32); CHLORIDE SERUM 106 mmol/L (98-107); POTASSIUM SERUM 3.4 mmol/L (3.5-5.1); SODIUM SERUM 141 mmol/L (136-145)
[2018-10-30 15:56] LABS: ALKALINE PHOSPHATASE 72 U/L (46-116); ALT/SGPT 24 U/L (14-59); AST/SGOT 13 U/L (15-37); BILIRUBIN TOTAL 0.45 mg/dL (0.20-1.00); CREATININE SERUM 1.1 mg/dL (0.6-1.0); GLUCOSE SERUM 125 mg/dL (74-106); TOTAL PROTEIN, SERUM 6.6 g/dL (6.4-8.2)
[2018-10-30 16:02] LABS: ALBUMIN 2.5 g/dL (3.4-5.0); CHOLESTEROL 117 mg/dL (<200)
--- NOTE | 2018-10-30 16:12 | NUR ---
IN AND OUT URINARY CATHETER INSERTD BY SOURAV COKER,URINE SENT TO LAB
[2018-10-30 16:23] LABS: UA SPECIFIC GRAVITY 1.015 (1.005-1.035); microscopic required? YES; urine erythrocyte 1+ (NEGATIVE)
--- NOTE | 2018-10-30 17:02 | NUR ---
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
--- NOTE | 2018-10-30 19:18 | NUR ---
REPORT RECIEVED FROM MIGNON BENJAMIN. PT AWAKE AND ALERT, LAYING IN POSITION OF COMFORT. LAB AT BED SIDE FOR SPECIMEN COLLECTION FAMILY AT BEDSIDE. VSS, RESPS E/U, NAD NOTESD AT THIS TIME. AWAITING CT RESULTS. WILL CONTINUE TO MONITOR.
--- NOTE | 2018-10-30 20:09 | NUR ---
PT AWAKE AND ALERT, LAYING IN POSITION OF COMFORT. ADMISSION REQUESTED BY MD, PREPARING PAPERWORK FOR ADMISSION. BED IN LOW AND LOCKED POSITION, 2 BED RAILS UP. VSS, RESPS E/U, NAD NOTED AT THIS TIME.
--- NOTE | 2018-10-30 20:35 | NUR ---
REPORT GIVEN TO PÉREZ BENJAMIN
--- NOTE | 2018-10-30 20:47 | NUR ---
RECEIVED FROM ED,PUT IN ROOM 240 B AND MADE COMFORTABLE.DAUGHTERS X3 AT BEDSIDE.SUPPORTIVE OF CARE.PAULINO WILL ADMIT PATIENT.QUICK START INITIATED.CALL LIGHT IN REACH.TELE BOX 6 WILL BE ASSIGNED.
[2018-10-30 21:00] VITALS: BP 148/73
--- NOTE | 2018-10-30 21:00 | NUR ---
D5NS AT 80 CC/ HOUR,FLAGYL IVPB INITIATED.IV SITE GOOD RFA,L HAND CELLULITIS HX FROM PREVIOUS ADMISSION/PAIN.
[2018-10-30 21:59] VITALS: BP 148/73
--- NOTE | 2018-10-30 22:18 | NUR ---
RECEIVED PT FROM ER. PT ADMIT FOR POSSIBLE CHOLECYSTITIS, PT IS A/O X2, NAME AND PLACE, CONFUSED, POOR MEMORY BUT ABLE TO FOLLOW COMMAND, RIGHT EYELID DROOP AND LEFT SIDE WEAKNESS NOTED. LUNG SOUND CLEAR BILATERAL,NO COUGH, NO SOB. PT IS ON TELE 6. A.FIB, DENY ANY CHEST PAIN OR DISCOMFORT. BOWEL SOUND PRESENT ALL 4 QUADANTS, NO DISTENTION, NO TENDER. PEDAL PULSE PRESENT BOTH FEET, TRACE EDEMA BLE NOTED. THERE IS ERYTHEM AND SWELLING AT LEFT HAND, PT C/O PAIN WHILE TOUCH, IV AT RIGHT FA, NO LEAKING, NO INFILTRAITON. ALL ADLS ASSIST, ALL NEED MET, CALL LIGHT IN REACH, WILL CONTINUE TO MONITOR.
--- NOTE | 2018-10-31 03:58 | NUR ---
PATIENT K+ LEVEL 3.4,NOT COVERED YET.
--- NOTE | 2018-10-31 03:59 | NUR ---
L HAND CELLULITIS FROM PREVIOUS ADMIT.
[2018-10-31 06:07] VITALS: BP 146/68
[2018-10-31 06:29] LABS: BASOPHIL % 0.5 % (0-2); PLATELET COUNT 181 x10^3mcL (130-400); RED CELL DISTRIBUTION WIDTH 13.8 % (11.5-14.5)
--- NOTE | 2018-10-31 06:39 | NUR ---
I AND O MEASURED.NS AT 80 CC/ HOUR.INCONTINENT URINE.WILL ENDORSE TO NEXT SHIFT.
[2018-10-31 06:54] LABS: CALCIUM 8.6 mg/dL (8.5-10.1); CARBON DIOXIDE 26.2 mmol/L (21-32); CHLORIDE SERUM 108 mmol/L (98-107); CREATININE SERUM 0.9 mg/dL (0.6-1.0); GLUCOSE SERUM 175 mg/dL (74-106); MAGNESIUM 1.3 mg/dL (1.8-2.4); POTASSIUM SERUM 3.3 mmol/L (3.5-5.1); SODIUM SERUM 144 mmol/L (136-145)
--- NOTE | 2018-10-31 07:04 | NUR ---
RECEIVED PT FROM SHIFT NURSE ASLEEP BUT AROUSABLE. NO ACUTE DISTRESS NOTED. IV INTACT AND PATENT. FALL PRECUATIONS IN PLACE. BED IN LOW POSITION. CALL LIGHT WITHIN REACH. WILL CONTINUE TO MONITOR.
[2018-10-31 09:29] VITALS: BP 148/82
--- NOTE | 2018-10-31 10:12 | NUR ---
PT LYING IN BED RESTING. NO C/O OF PAIN OR DISCOMFORT. FAMILY MEMBERS AT BEDSIDE. CALL LIGHT WITHIN REACH. WILL CONTINUE TO MONITOR.
--- NOTE | 2018-10-31 11:20 | NUR ---
CALLED TO AND RELAYED AND READ 'S NOTES. MADE AWARE OF THE MG-LEVEL 1.3 AND W/ ORDER.
--- NOTE | 2018-10-31 12:30 | NUR ---
PT SITTING UP IN BED EATING LUNCH. FAMILY MEMBERS AT BEDSIDE. CALL LIGHT WTIHIN REACH. WILL CONTINUE TO MONITOR.
[2018-10-31 13:26] VITALS: BP 147/80
--- NOTE | 2018-10-31 15:00 | NUR ---
PT ASLEEP BUT AROUSABLE. NO ACUTE DISTRESS NOTED. FAMILY MEMBER AT BEDSIDE. CALL LIGHT WITHIN REACH. WILL CONTINUE TO MONITOR.
[2018-10-31 16:51] VITALS: BP 158/74
--- NOTE | 2018-10-31 18:22 | NUR ---
PT ASLEEP BUT AROUSABLE. NO ACUTE DISTRESS NOTED. IV INTACT AND PATENT. FALL PRECAUTIONS IN PLACE. BED IN LOW POSITION. CALL LIGHT WITHIN REACH. WILL BE ENDORSED.
--- NOTE | 2018-10-31 19:42 | NUR ---
PT. AWAKE, ALERT, SITTING UP IN BED. ORIENTED TO SELF AND PLACE. SPEECH CLEAR. CONVERSATION APPROPRIATE AT THIS TIME. BREATH SOUNDS CLEAR THROUGHOUT LUNG LUNDBERG, RESP. EVEN, UNLABORED. PT. ON RA. NO SOB NOTED. PEDAL PULSES MODERATE BLE. RT. HAND REDNESS, NO SWELLING NOTED. ABD. SOFT AND ROUND, BOWEL SOUNDS ACTIVE. DENIES ABD. PAIN, DENIES NAUSEA. C/O CONSTIPATION. PT. HAD SMALL BM YESTERDAY, RECEIVED ORAL LAXATIVE TODAY PER REPORT. CALL LIGHT WITHIN REACH. BED LOW LAYING. FAMILY AT BEDSIDE.
[2018-10-31 21:40] VITALS: BP 147/76
--- NOTE | 2018-11-01 01:07 | NUR ---
PT. RESTING COMFORTABLY. APPEARS TO BEL SLEEPING. EYES CLOSED. IVF INFUSING WELL. BED REMAINS LOW LAYING WITH BED ALARM ON.
[2018-11-01 05:28] VITALS: BP 169/80
--- NOTE | 2018-11-01 06:35 | NUR ---
PT. RESTING QUIELTY. C/O PAIN EARLIER. PRN NORCO WAS OFFERED BUT PT. REFUSED. IVF INFUSING WELL. SITE WNL. CALL LIGHT WITHIN REACH. WILL ENDORSE PT CARE TO INCOMING NURSE.
[2018-11-01 07:03] LABS: BASOPHIL % 0.6 % (0-2); PLATELET COUNT 172 x10^3mcL (130-400); RED CELL DISTRIBUTION WIDTH 13.8 % (11.5-14.5)
[2018-11-01 07:08] LABS: ALBUMIN 2.3 g/dL (3.4-5.0); ALKALINE PHOSPHATASE 231 U/L (46-116); ALT/SGPT 109 U/L (14-59); AST/SGOT 62 U/L (15-37); BILIRUBIN TOTAL 0.46 mg/dL (0.20-1.00); CALCIUM 8.4 mg/dL (8.5-10.1); CARBON DIOXIDE 22.4 mmol/L (21-32); CHLORIDE SERUM 108 mmol/L (98-107); CREATININE SERUM 0.9 mg/dL (0.6-1.0); GLUCOSE SERUM 189 mg/dL (74-106); MAGNESIUM 1.5 mg/dL (1.8-2.4); POTASSIUM SERUM 3.5 mmol/L (3.5-5.1); SODIUM SERUM 142 mmol/L (136-145); TOTAL PROTEIN, SERUM 5.8 g/dL (6.4-8.2)
--- NOTE | 2018-11-01 08:15 | NUR ---
PATIENT ALERT AND ORIENTED TO PERSON, DAUGHTER AT BEDSIDE. ASSISTED PATIENT TO SIT UP ON CHAIR FOR BREAKFAST MEAL. DENIES CP, TELE [address] READING AFIB HR 120'S, DR ELEANOR MENENDEZ. LUNGS CTA, NO RESP DISTRESS NOTED ON RA, BREATHING E/U, O2 SAT 93%. PERIPHERAL PULSES PALPALBE, TRACE EDEMA GENERALIZED. BOWEL SOUNDS ACTIVE, LAST BM THIS AM. INCONTINENCE NOTED. MILD REDNESS/SWELLING NOTED TO LEFT HAND/FOREARM. IV SITE TO RFA, SITE WNL, NO REDNESS/SWELLING. CALL LIGHT WITHIN REACH. WILL CONT TO MONITOR.
[2018-11-01 09:38] VITALS: BP 154/77
[2018-11-01] MEDS ORDERED: LOSARTAN POTASS50 M1 PO (12:38)
[2018-11-01] MEDS ORDERED: ATENOLOL25 MG PO (12:39)
[2018-11-01 12:44] VITALS: BP 130/71
--- NOTE | 2018-11-01 13:10 | NUR ---
DISCHARGE INSTRUCTIONS AND PRESCRIPTION GIVEN TO PATIENT AND DAUGHTER AT BEDSIDE, VERBALIZED UNDERSTANDING. IV DC'D CATH INTACT. TELE 6 RETURNED TO TECH STATION. ALL QUESTIONS/CONCERNS ADDRESSED. LEAVING UNIT VIA WHEELCHAIR ACCOMPANIED BY RN.
== END 2018-11-01 13:19 | disposition home health service (06) | DRG 312 ==
LOC: ED 14:29 → DU 19:55
PROVIDERS: Internal Medicine Pulmonary Disease; Specialist; ADMIT Internal Medicine Pulmonary Disease
DX: R55 Syncope and collapse (principal); I69.354 Hemiplegia and hemiparesis following cerebral infarction affecting left non-dominant side; E87.2 Acidosis; E86.0 Dehydration; R00.1 Bradycardia, unspecified; T44.7X5A Adverse effect of beta-adrenoreceptor antagonists, initial encounter; E83.42 Hypomagnesemia; K80.20 Calculus of gallbladder without cholecystitis without obstruction; I10 Essential (primary) hypertension; E78.5 Hyperlipidemia, unspecified; R54 Age-related physical debility; Y92.009 Unspecified place in unspecified non-institutional (private) residence as the place of occurrence of the external cause
CPT/HCPCS: 36600; 82962; 97530-GP; G0378; G0480; J0696; J1956; J3475; J3480; J3490; J7042; Q0092

== ENCOUNTER 2018-11-07 19:29 | Observation (INO) | payer OTHER ==
[~2018-11-07] VITALS: Ht 160 cm; Wt 70.9 kg
[~2018-11-07 19:29] MED LIST changes: +ATENOLOL25 MG PO; +LOSARTAN POTASS50 M1 PO
[2018-11-07 19:39] VITALS: Ht 160 cm; Wt 70.9 kg
--- NOTE | 2018-11-07 20:02 | NUR ---
PT BIBA FOR ALOC, PER DAUGHTER PT WAS LESS VERBALLY RESPONSIVE THAN USUAL, HAS HAD A DECREASE IN APPETITE. PER DAUGHTER HX OF DEMENTIA WITH HX OF STROKE X2 WITH RT SIDE DEFICITS. PT CONNECTED TO FULL CM. MSE BY DR NGUYEN.
--- NOTE | 2018-11-07 20:09 | NUR ---
PER DAUGHTER PT WAS RECENTLY ADMITTED FOR CELLULITIS TO HANDS AND STS SINCE [facility] HAS "DECLINED." DAUGHTER STS PT NOT RESPONDING TO QUESTIONS TODAY AND RESPORTS USUALLY ABLE TO AMBULATE BUT IN LAST WEEK HAS NOT BEEN.
[2018-11-07 20:45] LABS: microscopic required? YES; urine erythrocyte 2+ (NEGATIVE)
[2018-11-07 20:46] LABS: BASOPHIL % 1.4 % (0-2); PLATELET COUNT 255 x10^3mcL (130-400)
[2018-11-07 20:55] LABS: CALCIUM 9.3 mg/dL (8.5-10.1); CARBON DIOXIDE 25.3 mmol/L (21-32); CHLORIDE SERUM 100 mmol/L (98-107); GLUCOSE SERUM 161 mg/dL (74-106); POTASSIUM SERUM 3.3 mmol/L (3.5-5.1); SODIUM SERUM 135 mmol/L (136-145)
[2018-11-07 21:00] LABS: ALBUMIN 2.1 g/dL (3.4-5.0); ALKALINE PHOSPHATASE 159 U/L (46-116); ALT/SGPT 65 U/L (14-59); AST/SGOT 66 U/L (15-37); BILIRUBIN TOTAL 0.7 mg/dL (0.20-1.00); CHOLESTEROL 92 mg/dL (<200); HDL CHOLESTEROL 19 mg/dL (40-60); TOTAL PROTEIN, SERUM 6.5 g/dL (6.4-8.2)
[2018-11-07 21:14] LABS: FREE T4 1.41 ng/dL (0.76-1.46); FREE THYROXINE INDEX 2.7 ug/dL (1.4-4.5)
--- NOTE | 2018-11-07 21:17 | NUR ---
PT IN RTHREE FORKS IN POSITION OF COMFORT,RESP E/U, NO DISTRESS. MALE VISITOR AT BEDSIDE.
[2018-11-07 21:20] LABS: T3 TOTAL 0.45 ng/mL
--- NOTE | 2018-11-07 22:38 | NUR ---
PT RESP E/U, WITH EYES CLOSED, NO DISTRESS. STILL CONNECTED TO FULL CM.
--- NOTE | 2018-11-08 00:05 | NUR ---
PT IN POSITION OF COMFORT, RESP E/U, NO DISTRESS. DAUGHTER AT BEDSIDE.
--- NOTE | 2018-11-08 01:22 | NUR ---
REPORT GIVEN TO SOURAV ROMEO TO ASSUME CARE. PT RESP E/U WITH EYES CLOSED, NO DISTRESS. REMAINS CONNECTED TO FULL CM.
--- NOTE | 2018-11-08 01:40 | NUR ---
RECEIVED PT FROM ED VIA [employer]. PT ALERT AND ORIENTED TO SELF ONLY. DENIES SALGADO/DIZZINESS. BREATHING EVEN AND UNLABORED, ON RA WITH NO SOB NOTED. MED SURG PATIENT. ABD SOFT/ROUND, ACTIVE BOWEL SOUNDS. LAST BM 11/06/18. ERYTHEMA TO BUTTOCKS/COCCYX. LUE EDEMA. IV LH AND RH. PT TOTAL CARE PT. WILL TURN AND REPOSITION EVERY 2-HOURS. DAUGHTER AT BEDSIDE. NO SIGNS OF ACUTE DISTRESS NOTED. CALL BUTTON WITHIN REACH. SAFETY PRECAUTIONS IN PLACE. WILL CONTINUE TO MONITOR.
[2018-11-08 02:28] VITALS: BP 134/64
--- NOTE | 2018-11-08 05:18 | NUR ---
PT SLEPT MOST OF THE NIGHT WITH NO SIGNS OF DISTRESS NOTED. BREATHING EVEN AND UNLABORED. TURN AND REPOSITIONED EVERY TWO HOURS. IV PATENT AND INFUSING WELL. NO SIGNS OF ACUTE DISTRESS. CALL BUTTON WITHIN REACH. SAFETY PRECAUTIONS IN PLACE. WILL CONTINUE TO MONITOR AND ENDORSE CARE TO DAY SHIFT RN.
[2018-11-08 05:35] VITALS: BP 118/61
[2018-11-08 06:47] LABS: BASOPHIL % 0.3 % (0-2); PLATELET COUNT 218 x10^3mcL (130-400); RED CELL DISTRIBUTION WIDTH 14.1 % (11.5-14.5)
[2018-11-08 07:27] LABS: CALCIUM 8.6 mg/dL (8.5-10.1); CARBON DIOXIDE 23.7 mmol/L (21-32); CHLORIDE SERUM 105 mmol/L (98-107); CREATININE SERUM 0.9 mg/dL (0.6-1.0); GLUCOSE SERUM 151 mg/dL (74-106); MAGNESIUM 1.6 mg/dL (1.8-2.4); PHOSPHOROUS 3.2 mg/dL (2.5-4.9); POTASSIUM SERUM 3.5 mmol/L (3.5-5.1); SODIUM SERUM 139 mmol/L (136-145)
--- NOTE | 2018-11-08 07:30 | NUR ---
PT IN NO SIGNS OF DISTRESS. ENDORSED CARE TO DAY SHIFT RN, ALL QUESTIONS ADDRESSED.
--- NOTE | 2018-11-08 07:43 | NUR ---
RECEIVED PATIENT FROM SOURAV ROMEO. PATIENT IN BED AT THIS TIME, NO SIGNS OF PAIN OR DISCOMFORT. WILL CONTINUE TO MONITOR FOR AMS AND ADMINISTER AM MEDICATIONS. CALL LIGHT IN REACH AT THIS TIME.
[2018-11-08 08:13] VITALS: BP 137/62
--- NOTE | 2018-11-08 14:20 | NUR ---
SPOKE TO , NEW ORDER RECEIVED P.TSantiago LUNA TOMORROW.
--- NOTE | 2018-11-08 14:46 | NUR ---
DR ROWE IN TO SPEAK WITH PATIENT DAUGHTER VAZQUEZ. EXPLAINED TO PATIENT THAT SHE HAS BEEN ORDERED PHYSICAL THERAPY AND POSSIBLE SNF PLACEMENT TOMORROW. THIS NURSE INFORMED DAUGHTER VAZQUEZ ABOUT TIA, AND EDUCATION PHAMPLETS GIVEN TO DAUGHTER. DAUGHTER VERBALIZES UNDERSTANDING. PATIENT IN BED AT THIS TIME WITH NO S/S OF PAIN OR DISTRESS. CALL LIGHT IN REACH AT THIS TIME.
[2018-11-08 16:43] VITALS: BP 131/61
--- NOTE | 2018-11-08 18:46 | NUR ---
SPOKE WITH DR JOHSNON VIA PHONE ABOUT PATIENTS HOME HYPERGLYCEMIA REGIMENT. PATIENT BS 315. WAS TOLD THAT PATIENT DOES NOT HAVE ACCUCHECKS ORDERED, HAS METFORMIN 1000 MG BID, INSULIN LISPRO 20 U WBK AND INSULIN LISPRO 15 U WDN, AND CURRENT BS OF 315. PER DR JOHNSON, CONTINUE HOME REGIMENT, AND INSULIN SLIDING SCALE ORDERED PER NURSING PROTOCOL. WILL GIVE PM METFORMIN NOW. PATIENTS DAUGHTER INFORMED AND MADE AWARE. CALL LIGHT IN REACH.
--- NOTE | 2018-11-08 19:40 | NUR ---
PT IS A/O X [address] SELF AND PLACE. PT IS MED SURG DENIES ANY CHEST PAIN OR SOB AT THIS TIME. PT HAS PALPABLE PULSES AND EDEMA NOTED TO LUE. PT HAS BREATHE SOUNDS ARE EVEN AND UNLABORED. LUNG SOUNDSD CLEAR ON RA. PT LAST BM WAS 11/05. ABD IS DISTENDED AND SOFT. MD JOHNSON HAS BEEN MADE AWARE, VERBAL ORDERS IN PLACE. WILL CONT TO MONITOR. PT IS INCONTIENT. PT HAS GENERAL WEAKNESS, UNABLE TO TUNN SELF, TOTAL CARE PT. PT HAS L SIDED WEAKNESS. ERYTHEMA TO THE BUTTOCKS, OPTIFORM IN PLACE. PT IV TO LH INFUSING WELL. WILL CONT TO MONITOR, CALL LIGHT WITHIN REACH. RECEIVED PT FROM DAY SHIFT NURSE PRANAY.
--- NOTE | 2018-11-08 19:41 | NUR ---
REPORTED PATIENT OFF TO SOURAV REAGAN. MADE AWARE OF TODAYS PLAN OF CARE. RN TEZ AWARE ABOUT INSULIN SS AND PATIENT CONSTIPATION PER FAMILY REQUEST. CALL LIGHT IN REACH AT THIS TIME.
[2018-11-08 20:32] VITALS: BP 145/46
--- NOTE | 2018-11-09 03:05 | NUR ---
PT IN BED ASLEEP. PT RESPONDS TO VERBAL STIMULI, REPOSTIONED PT. NO RESP DISTRESD NOTED. PT BREATHING EVEN AND UNLABORED. WILL CONT TO MONITOR. CALL LIGHT WITHIN REACH.
[2018-11-09 05:50] VITALS: BP 142/75
--- NOTE | 2018-11-09 05:50 | NUR ---
PT SLEPT THROUGH THE NIGHT, REPOSTIONED NEEDED. PT BREATHING EVEN AND UNLABORED. NO RESP DISTRESS NOTED. NO ACUTE CHANGES THROUGH OUT THE NIGHT. NO BM YET. PT SLOW TO RESPOND, RESPONDS TO VERBAL STIMULI, A/O X2. PT COOPERATIVE WITH NURSING CARE WILL CONT TO MONITOR. CALL LIGHT WITHIN REACH. WILL ENDORSE CARE TO DAY SHIFT NURSE.
[2018-11-09 06:54] LABS: ALKALINE PHOSPHATASE 220 U/L (46-116); ALT/SGPT 138 U/L (14-59); AST/SGOT 129 U/L (15-37); BILIRUBIN DIRECT 0.25 mg/dL (0.0-0.2); BILIRUBIN TOTAL 0.54 mg/dL (0.20-1.00); CALCIUM 8.9 mg/dL (8.5-10.1); CHLORIDE SERUM 104 mmol/L (98-107); GLUCOSE SERUM 162 mg/dL (74-106); POTASSIUM SERUM 3.3 mmol/L (3.5-5.1); SODIUM SERUM 139 mmol/L (136-145)
[2018-11-09 07:03] LABS: ALBUMIN 1.8 g/dL (3.4-5.0); TOTAL PROTEIN, SERUM 5.8 g/dL (6.4-8.2)
[2018-11-09 07:11] LABS: BASOPHIL % 0.4 % (0-2); PLATELET COUNT 226 x10^3mcL (130-400); RED CELL DISTRIBUTION WIDTH 14.5 % (11.5-14.5)
--- NOTE | 2018-11-09 07:25 | NUR ---
SEEN THE PT AND AWARE ABOUT K=3.3 AND NO NEW ORDER RECEIVED THIS TIME.
--- NOTE | 2018-11-09 07:50 | NUR ---
RECEIVED PT IN BED. ASSESSED AND DOCUMENTED. DENIES PAIN THIS TIME. STABLE. REPOSITIONING Q2HR. SAFTEY PRECAUTIONS ARE IN PLACE. WILL MONITOR.
--- NOTE | 2018-11-09 09:00 | NUR ---
PT'S DAUGHTER AT BEDSIDE, FEEDING THE PT. EATING WELL. STABLE.
[2018-11-09 09:39] VITALS: BP 146/79
--- NOTE | 2018-11-09 10:53 | NUR ---
PT C/O HEADACHE AT 0953 AND TYLENOL PO GIVEN AND REASSESSED NOW AT 1053 AND PT SAID NO MORE HEADACHE. FAMILY AT BEDSIDE.
--- NOTE | 2018-11-09 12:45 | NUR ---
PT'S DAUGHTER AT BEDSIDE. FEEDING THE PT LUNCH. DENIES ANY PAIN. STABLE.
[2018-11-09 17:29] VITALS: BP 146/79
[2018-11-09 18:22] VITALS: BP 135/58
--- NOTE | 2018-11-09 19:15 | NUR ---
PT RESTING IN BED COMFORTABLY. DENIES PAIN. STABLE. GAVE REPORT TO CREW MEMBER NURSE.
--- NOTE | 2018-11-09 19:50 | NUR ---
RECEIVED PATIENT AWAKE WITH NO SIGN OF ACUTE DISTRESS. BREATHING EASY AND NONLABOR SATTING AT 98% RA. EDEMA TO LUE NOTED, PATIENT ON HEPARIN 5000 UNITS SQ. ABDOMEN ROUND, OBESE AND NONTENDER WITH ACTIVE BS/ IV TO RH INTACT AND INFUSING WELL. WILL CONTINUE TO MONITOR. BED TO LOWEST POSITION. FAMILY MEMBERS AT BEDSIDE.
[2018-11-09 21:30] VITALS: BP 125/61
--- NOTE | 2018-11-10 00:47 | NUR ---
HAD BM SOFT IN LARGE AMOUNT, PERIANAL CARE GIVEN, REPOSITIONED FOR COMFORT.WILL CONTINUE TO MONITOR.
--- NOTE | 2018-11-10 05:08 | NUR ---
CHECKED AT INTERVALS FOR NEEDS AND SAFETY. ALL NEEDS ATTENDED. REPOSITIONED FOR COMFORT.
[2018-11-10 05:42] VITALS: BP 129/61
--- NOTE | 2018-11-10 07:25 | NUR ---
RECEIVED PT FROM SOAP INSPECTOR. STABLE. PT IS COMFORTABLY SLEEPING THIS TIME.
--- NOTE | 2018-11-10 08:00 | NUR ---
PT IS AWAKE, ASSESSED AND WILL DOCUMENT. DENIES ANY PAIN. WOUND TO COCCYX. PICTURE TAKEN AND INFORMED AND WOUND CARE NURSE AWARE. APPLYING Z-GAURD ACCORDING TO ORDER AND CHANGED OPTIFOAM. REPOSITIONING Q2HR. WHEN P.T GET THE UP THE PT WILL APPLY AIR MATTRESS. FAMILY AT BEDSIDE. DAUGHTER SAID PT HAS THAT WOUND AT HOME PRIOR TO THIS ADMISSION. DOCUMENTED IN THE SKIN CARE PLAN. CHARGE NURSE AWARE.
[2018-11-10 09:10] VITALS: BP 154/77
--- NOTE | 2018-11-10 09:50 | NUR ---
SCREEN FOR LOW JANINE SCALE AT RISK, SKIN ASSESSMENT DONE WITH PRIMARY RN AND DAUGHTER IRMA AT BEDSIDE, PER DAUGHTER PT. BECOMES BED BOUND PRIOR TO THIS ADMISSION AND PT. HAS COCCYX WOUND AT HOME. SHE CAN NO LONGER TAKE CARE OF HER MOTHER AND WISH TO HAVE PT. GOES TO SNF. INTEGUMENTARY: -SACRALCOCCYX PRESSURE ULCER STAGE 2, 1X0.5X0.1CM WOUUND BED IS 100% GRANULATING, DALIA WOUND SKINM INTACT WITH SURROUNDING REDNESS 2X1CM -BLANCHABLE REDNESS TO R/L HEELS, SKIN INTACT RECOMMENDATIONS: -CLEANSE SACRALCOCCYX WOUND WITH NS, PAT DRY, APPLY Z GUARD AND COVER WITH OPTIC FOAM QD AND PRN IF SOILING. -TURN AND REPOSITION PATIENT Q 2H OFFLOAD LEFT AND RIGHT HIPS -ASSESS AND MONITOR SKIN CONDITION DURING POSITION CHANGE -OFFLOAD BILATERAL HEELS BY PLACING PILLOWS UNDER CALVES AT ALL TIMES, UNLESS OTHERWISE CONTRAINDICATED -PRESSURE REDISTRIBUTION SURFACE THERAPY WITH PILLOWS -KEEP SKIN CLEAN AND DRY AT ALL TIMES. -RD CONSULT AND RECOMMENDATION, SPOKE TO DIETITION
--- NOTE | 2018-11-10 12:00 | NUR ---
REPOSITIONING PT Q2HR. STABLE. DENIES PAIN. FAMILY AT BEDSIDE.
--- NOTE | 2018-11-10 13:53 | NUR ---
Initial Nutrition Assessment: 218/A IRMA HUGHES IA HR Dx: AMS PMHx: gallstons, CVA, HTN, HLD, residual left hemiplegia, ambulates with cane at baseline PSHx: none Labs: K 3.3L, BG 162H, BUN 19H, AST 129H, ALT 138H Meds: Colace, D50%, Glucophage, humulin, norco, Zofran, heparin Diet: CCHO PO Intake: (11/10) breakfast 80%, (11/09) 60% all meals, Ht: 160.02cm (63") Wt: 70.9 kg (156#) BMI: 27.7 kg/m2 Bed scale: 71.9 kg IBW: 115# (52 kg) %IBW: 135 UBW: pt or family not aware Age: 83/F Food Allergies: NKFA Skin: erythema to buttock Luis: 13 Edema: LUE GI: poor PO, Last BM: 11/05 Per H&P, Pt is a 83 F PMH long standing gallstones, CVA, HTN, HLD, residual left hemiplegia, ambulates with cane at baseline, presents after family found her at home pale and lethargic, and checked her BP and her HR was in the 40's and BP was 90's over 40's. RDN Visit (11/10): Patient was sleeping. Patient's daughter was at bedside. She said that patient ate good amount of breakfast this morning and does not have any N/V. Patient has been following diabetic diet at home. Patient dislikes beef, pork. LDA's were noted and entered in the computrition system. Problem with: N/V/D/C: none Problems with: Chewing/Swallowing: none Current appetite: good Recent wt change: unable to access %wt change: N/A Vitamin/Supplement use: Vitamin D3 Special diet at home: Diabetic Physical activity: sedentary Nutrition education given: Patient's daughter was concerned about diet to be followed for gall stones. Low fat diet education was provided along with benefits of high fiber diet which would be beneficial for both diabetes and gall bladder condition. Food-drug interactions: Colace- high fiber w/5444-8584 ml fluids Education given: yes Estimated Nutritional Needs Based on ideal body weight 52 kg Energy: 4816-8834 kcal/d (25-30 kcal/kg) Protein: 52-62.4 g/d (1.0-1.2 g/kg) - geriatric maintenance Fluid: 6888-2286 ml/d (1 ml/kcal) or per doctor Nutrition Diagnosis 1. Impaired nutrient utilization related to endocrine and liver dysfunction as evidenced by BG 162, AST 129, ALT 138. Intervention 1. Recommend continuing [facility] diet. Monitor/Evaluate Goal: PO intake at least 75% of estimated needs Monitor: PO intake, Labs, GI function F/U in 3-5 days as moderate risk 8/2-4
--- NOTE | 2018-11-10 13:53 | NUR ---
1. Recommend continuing [facility] diet.
[2018-11-10 18:00] VITALS: BP 128/62
--- NOTE | 2018-11-10 18:00 | NUR ---
TRASPORTATION HERE TO LINESPERSON PT. REPORT GIVEN TO [facility] NURSE. FAMILY AWARE ABOUT TRANSFER AND AGREED TRANSFER TO [facility] AND SIGNED DC PAPER. PT DENIES ANY PAIN. REMOVED IV AND DRESSING APPLIED. PT TRANSFERED TO SNF IN STABLE CONDITION.
== END 2018-11-10 18:23 | DRG 69 ==
LOC: ED 19:29 → MU 11-08 01:05
PROVIDERS: Emergency Medicine; Internal Medicine Nephrology; ADMIT Internal Medicine
DX: G45.9 Transient cerebral ischemic attack, unspecified (principal); I69.354 Hemiplegia and hemiparesis following cerebral infarction affecting left non-dominant side; E11.65 Type 2 diabetes mellitus with hyperglycemia; E87.6 Hypokalemia; R54 Age-related physical debility; I48.91 Unspecified atrial fibrillation; I11.9 Hypertensive heart disease without heart failure; I25.10 Atherosclerotic heart disease of native coronary artery without angina pectoris; F03.90 Unspecified dementia, unspecified severity, without behavioral disturbance, psychotic disturbance, mood disturbance, and anxiety; Z79.01 Long term (current) use of anticoagulants; Z68.29 Body mass index [BMI] 29.0-29.9, adult
CPT/HCPCS: 82962; 84439; 97110-GP; 97530-GP; G0378; J1644; J1815; J1817; J7030; J7042; Q0092

== ENCOUNTER 2019-04-09 16:06 | Emergency (ER) | payer OTHER ==
[~2019-04-09] VITALS: Ht 160 cm; Wt 65.8 kg
[2019-04-09 16:20] VITALS: Ht 160 cm; Wt 65.8 kg
[2019-04-09 16:48] LABS: BASOPHIL % 0.4 % (0-2); PLATELET COUNT 326 x10^3mcL (130-400); RED CELL DISTRIBUTION WIDTH 18.5 % (11.5-14.5)
[2019-04-09 17:02] LABS: ALKALINE PHOSPHATASE 95 U/L (46-116); ALT/SGPT 13 U/L (14-59); AST/SGOT 13 U/L (15-37); BILIRUBIN TOTAL 0.5 mg/dL (0.20-1.00); CARBON DIOXIDE 30.2 mmol/L (21-32); CHLORIDE SERUM 101 mmol/L (98-107); CREATININE SERUM 0.9 mg/dL (0.6-1.0); GLUCOSE SERUM 182 mg/dL (74-106); SODIUM SERUM 138 mmol/L (136-145); TOTAL PROTEIN, SERUM 6.8 g/dL (6.4-8.2)
[2019-04-09 17:04] LABS: ALBUMIN 2.4 g/dL (3.4-5.0); POTASSIUM SERUM 2.8 mmol/L (3.5-5.1)
[2019-04-09 17:31] LABS: UA SPECIFIC GRAVITY 1.015 (1.005-1.035); microscopic required? YES; urine erythrocyte 1+ (NEGATIVE)
[2019-04-09 20:52] VITALS: BP 119/61
== END 2019-04-09 20:57 | disposition home or self-care (01) ==
LOC: ED 16:06
PROVIDERS: Emergency Medicine
DX: E11.649 Type 2 diabetes mellitus with hypoglycemia without coma (principal); I10 Essential (primary) hypertension; E78.00 Pure hypercholesterolemia, unspecified; I48.91 Unspecified atrial fibrillation; M19.90 Unspecified osteoarthritis, unspecified site; Z86.73 Personal history of transient ischemic attack (TIA), and cerebral infarction without residual deficits; Z88.0 Allergy status to penicillin
CPT/HCPCS: 36415; 82962; 87804; J7040